=== PATIENT | male | born 1990 | race Caucasian/White ===

== ENCOUNTER 2016-10-27 20:10 | Emergency (ER) | payer BC, OTHER ==
[2016-10-27] MEDS ORDERED: TRIAMCINOLONE ACETONIDE 15 APPL TUBE TP ONE ×2 (21:24→21:33)
[2016-10-27] MEDS ORDERED: DEXAMETHASONE SOD PHOSPHATE 10 MG/ML VIAL IM ONE (21:24)
[2016-10-27] MEDS ORDERED: TRIAMCINOLONE ACETONIDE 40 MG/ML VIAL IM ONE (21:24)
[2016-10-27] MEDS ORDERED: hydrOXYzine PAMOATE 25 MG CAPSULE PO ONE (21:24)
--- NOTE | 2016-10-27 21:29 | ERNOTE ---
Integumentary HPI - Narrative Date of Service: 10/27/16 - General Presenting Symptoms: rash Time Seen by Provider: 10/27/16 21:11 Source: patient, RN notes reviewed Exam Limitations: no limitations - Immun/Allergies/Home Medications Immunizations: IMMUNIZATION HX Immunizations Up to Date Yes Allergies/Adverse Reactions: Allergies Allergy/AdvReac Type Severity Reaction Status Date / Time dial soap Allergy Severe Swelling Uncoded 12/01/14 10:56 of Face Home Medications: HOME MEDICATIONS Triamcinolone Acetonide [Kenalog 0.1%] 15 gm TP TID #2 tube 10/27/16 [Last Taken Unknown] hydrOXYzine PAMOATE [Vistaril] 25 mg PO Q6H PRN #20 cap 10/27/16 [Last Taken Unknown] - History of Present Illness Narrative: 26 y/o male ambulatory to the ED for a pruritic rash that began after he had been out in the [place] days ago. The rash is on his face, trunk and extremities. He has used bleach, white vinegar and olive dry without improvement. Location: Reports: facial, torso, upper extremity, lower extremity Quality: Reports: itching, burning Severity: moderate Exposure: Reports: poison olive/oak Associated Symptoms: Reports: blisters, rash, change in skin texture. Denies: swelling/mass/lumps, edema, fever, flushing, headache, nasal congestion, sore throat, malaise Prior Treatment: Denies: recently seen Review of Systems - Review of Systems Constitutional: Absent: recent illness, fever, malaise EYE: Present: no symptoms reported ENT: Absent: nose congestion, throat swelling Respiratory: Absent: shortness of breath, cough, wheezing, stridor Cardiology: Present: no symptoms reported Gastrointestinal/Abdominal: Absent: nausea, vomiting Genitourinary: Present: no symptoms reported Musculoskeletal: Absent: joint pain, joint swelling Skin: Present: rash, lesions Neurological: Absent: headache, dizziness/light-headedness Endocrine: Present: no symptoms reported Hematologic/Lymphatic: Present: no symptoms reported Psych: Present: no symptoms reported - Patient's Past Medical History Patient History - Medical: No pertinent hx Patient History - Cardiac/Respiratory: No pertinent hx Patient History - Cancer: No Hx of Cancer Patient History - Surgical Procedures: No surgical history Patient History - Other: None - Social History Living Situations: spouse Abuse History: No History of abuse Psych History: No pertinent hx Does anyone smoke in the home?: No Smoking Status: Never smoker Alcohol Use: occasionally Drug Use: none - Immunizations Immunizations Up to Date: Yes Physical Exam - Physical Exam General Appearance: Present: wd/wn, alert, no apparent distress Eye Exam: Normal inspection: bilateral Respiratory: Present: no respiratory distress, normal breath sounds, no accessory muscle use, lungs clear Cardiovascular/Chest: Present: regular rate, rhythm, no murmur Extremity Exam: Present: normal inspection, normal range of motion, no edema Neurological Exam: Present: alert, oriented, normal mood/affect, no motor/ sensory deficits Skin Exam: Present: normal color, warm/dry, skin rash - moderate maculopapular eruption to face, trunk and extremities with some areas of blistering and weeping ED Progress - Vital Signs Patient's Vital Signs:: I have reviewed the patient's vital signs. Vital Signs: Vital Signs 10/27/16 20:35 Temperature 37.2 C Pulse Rate 88 Respiratory 16 Rate Blood Pressure 138/83 O2 Sat by Pulse 99 Oximetry - Progress/Reassessment Chief Complaint: Rash Progress:: Unchanged Departure Clinical Impression: Contact dermatitis due to poison olive - Departure Disposition: Home Follow Up Needed Condition: Good Instructions: Poison Olive Dermatitis Prescriptions: Triamcinolone Acetonide [Kenalog 0.1%] 15 gm TP TID #2 tube hydrOXYzine PAMOATE [Vistaril] 25 mg PO Q6H PRN #20 cap PRN Reason: Itching
[2016-10-27] MEDS ORDERED: TRIAMCINOLONE ACETONIDE 40 MG/ML VIAL ONE (21:33)
[2016-10-27] MEDS ORDERED: DEXAMETHASONE SOD PHOSPHATE 10 MG/ML VIAL ONE (21:33)
[2016-10-27] MEDS ORDERED: hydrOXYzine PAMOATE 25 MG CAPSULE ONE (21:33)
[2016-10-27 22:49] VITALS: BP 130/71
== END 2016-10-27 21:53 | disposition home or self-care (01) ==
LOC: ER 20:10
DX: L23.7 Allergic contact dermatitis due to plants, except food (principal)

== ENCOUNTER 2017-01-04 22:54 | Emergency (ER) | payer BC ==
[2017-01-04 23:05] VITALS: BP 147/95
[2017-01-04] MEDS ORDERED: TETANUS AND DIPHTHERIA TOXOID 0.5 ML SYRG IM ONE ×2 (23:05→23:09)
--- NOTE | 2017-01-04 23:09 | ERNOTE ---
Medical Problem HPI - Narrative Date of Service: 01/04/17 - General Chief Complaint: Laceration Time Seen by Provider: 01/04/17 23:05 Source: patient Exam Limitations: no limitations - Immun/Allergies/Home Medications Immunizations: IMMUNIZATION HX Immunizations Up to Date Yes Allergies/Adverse Reactions: Allergies dial soap Allergy (Severe, Uncoded 12/01/14 10:56) Swelling of Face Home Medications: HOME MEDICATIONS NK [No Home Medication] 01/04/17 [Last Taken Unknown] - History of Present History Narrative: Says they came in mostly because his told him that he had to. The patient has a pocket knife which he accidentally cut the thumb nail of his right hand on. The laceration appeared to go through the thumbnail and in the bed. Bleeding was controlled prior to arrival. Patient didn't think anything needed to be done but his made him. Patient has no complaints. No bleeding. Pain is gone. Review of Systems - Review of Systems Constitutional: Present: no symptoms reported EYE: Present: no symptoms reported ENT: Present: no symptoms reported Respiratory: Present: no symptoms reported Cardiology: Present: no symptoms reported Gastrointestinal/Abdominal: Present: no symptoms reported Musculoskeletal: Present: other - laceration to the nail was discussed Skin: Present: no symptoms reported Neurological: Present: no symptoms reported Psych: Present: no symptoms reported All Other Systems: All systems neg except as marked - Patient's Past Medical History Patient History - Medical: No pertinent hx Patient History - Cardiac/Respiratory: No pertinent hx Patient History - Cancer: No Hx of Cancer Patient History - Surgical Procedures: No surgical history Patient History - Other: None - Social History Living Situations: spouse Abuse History: No History of abuse Psych History: No pertinent hx Does anyone smoke in the home?: No Alcohol Use: occasionally Drug Use: none - Immunizations Immunizations Up to Date: Yes Physical Exam - Physical Exam General Appearance: Present: wd/wn, alert Ears, Nose, Throat: Present: normal ENT inspection Respiratory: Present: no respiratory distress, chest nontender, lungs clear Cardiovascular/Chest: Present: regular rate, rhythm Extremity Exam: Present: other - patient has a longitudinal laceration through the middle of the thumbnail and right hand. The laceration appears to go all the way through the nail and into the nailbed. Attempt to distract the edges of the injury results and production of no gaping. Distal neurovascular is intact. Neurological Exam: Present: no motor/sensory deficits Skin Exam: Present: normal color Lymphatic Exam: Present: no adenopathy ED Progress - Vital Signs Patient's Vital Signs:: I have reviewed the patient's vital signs. Vital Signs: Vital Signs 01/04/17 23:02 Temperature 36.8 C Pulse Rate 79 Respiratory 18 Rate Blood Pressure 147/95 O2 Sat by Pulse 97 Oximetry - Progress/Reassessment Chief Complaint: Laceration Departure - Departure Clinical Impression: Thumb laceration Disposition: Home self-care Condition: Stable Additional Instructions: As we discussed, there is no specific treatment you need at this time. He need to keep a close eye on the area and make sure it doesn't become dirty. If it does become soiled or wet you should wash it with warm soapy water and blotted dry. Keep an eye out for signs of infection. If you develop fever, pus, redness, warmth you should return to the emergency department. Otherwise follow -up with her family doctor. I updated her tetanus shot here. Return if new or worrisome symptoms
== END 2017-01-04 23:20 | disposition home or self-care (01) ==
LOC: ER 22:54
DX: S61.111A Laceration without foreign body of right thumb with damage to nail, initial encounter (principal); W26.0XXA Contact with knife, initial encounter; Y93.9 Activity, unspecified; Y92.009 Unspecified place in unspecified non-institutional (private) residence as the place of occurrence of the external cause; Z23 Encounter for immunization